=== PATIENT | male | born 1960 | race Hispanic/Latino ===

== ENCOUNTER 2019-01-17 08:26 | Day surgery (SDC) | payer OTHER ==
[~2019-01-17 08:26] MED LIST: NACL 0.9% 1000 ML 1,000 ML IV SCH
--- NOTE | 2019-01-17 09:32 | Anesthesia Day of Surgery ---
Anesthesia Day of Surgery - Day of Surgery Patient Examined: Yes Patient H&P Reviewed: Yes Patient is NPO: Yes Beta Blockers: No
--- NOTE | 2019-01-17 09:33 | Anesthesia Consultation ---
Anesthesia Consult and Med Hx Date of service: 01/17/19 - Airway Anesthetic Teeth Evaluation: Good ROM Head & Neck: Adequate Mental/Hyoid Distance: Adequate Mallampati Class: Class II Intubation Access Assessment: Probably Good - Pre-Operative Health Status ASA Pre-Surgery Classification: ASA3 Proposed Anesthetic Plan: MAC - Pulmonary Hx Sleep Apnea: Yes - Cardiovascular System Hx Hypertension: Yes - Endocrine Hx Hypothyroidism: Yes
[2019-01-17] MEDS ORDERED: DIPRIVAN 10 MG/ML IV ONE (11:15)
[2019-01-17] MEDS ORDERED: VERSED ONE (11:15)
--- NOTE | 2019-01-17 11:39 | Procedure Note ---
Date of procedure: 01/17/19 Pre-op diagnosis: Colon Polyp Screening Post-op diagnosis: other (No Colon Polyps noted/ Scattered Diverticuli/ Mild to Moderate Internal Hemorrhoid) Procedure: Colonoscopy Anesthesia: MAC Surgeon: GERMÁN GUZMAN Estimated blood loss: none Pathology: none Condition: stable Disposition: same day (Encourage fiber intake; resume home medication and follow up in 1 to 2 weeks ([phone]).)
--- NOTE | 2019-01-17 12:05 | Operative Report ---
PROCEDURE: Colonoscopy. INDICATIONS: This is a 58-year-old white male who had a colonoscopy done as part of colon polyp screening. Last colonoscopy was done several years ago. Procedure was done after getting informed consent with MAC anesthesia. Initial rectal exam was unremarkable. Instrument was passed through the rectum onto the cecum, which was identified with ileocecal valve and the appendiceal orifice. Visualization was fair to good. There was a few diverticula noted in the proximal colon, the transverse colon showed normal mucosa. Again, there were a few scattered diverticula noted in the left colon some of which were deep and the rectum showed mild to moderate internal hemorrhoid on the retroverted view. No colon polyps were noted. There were no biopsies done and no bleeding associated with the procedure. No complications associated with the procedure. ASSESSMENT: Colon polyp screening, no colon polyps noted. Scattered diverticula, mild to moderate internal hemorrhoid. Plan is to encourage fiber supplements, have the patient resume home medication. Have the patient follow up in the office in 1-2 weeks' time. The procedure was done in the presence and with the assistance of the GI lab team, which included MIKE Jenkins and rosemarie. JOB# [id number] DIVINA/SANGEETHA
[2019-01-17 14:22] VITALS: BP 105/71
== END 2019-01-17 08:27 | disposition home or self-care (01) ==
LOC: GIO 08:26
DX: Z12.11 Encounter for screening for malignant neoplasm of colon (principal); K64.8 Other hemorrhoids; K57.30 Diverticulosis of large intestine without perforation or abscess without bleeding; E78.00 Pure hypercholesterolemia, unspecified; I10 Essential (primary) hypertension; G47.30 Sleep apnea, unspecified; E03.9 Hypothyroidism, unspecified; Z79.899 Other long term (current) drug therapy
CPT/HCPCS: 45378; J2250; J2704; J7030